=== PATIENT | female | born 1950 | race Caucasian/White ===

== ENCOUNTER 2019-04-19 12:48 | Inpatient (IN) | payer OTHER ==
[~2019-04-19] VITALS: Ht 165.1 cm; Wt 97.8 kg
[2019-04-19 12:59] VITALS: Ht 165.1 cm; Wt 97.8 kg
[2019-04-19 13:31] LABS: BASOPHIL % 0.4 % (0-2); PLATELET COUNT 211 x10^3mcL (130-400); RED CELL DISTRIBUTION WIDTH 13.7 % (11.5-14.5)
[2019-04-19 13:45] LABS: CALCIUM 8.9 mg/dL (8.5-10.1); CARBON DIOXIDE 30.9 mmol/L (21-32); CHLORIDE SERUM 103 mmol/L (98-107); CREATININE SERUM 0.9 mg/dL (0.6-1.0); GFR1 > 60 mL/min; GLUCOSE SERUM 205 mg/dL (74-106); SODIUM SERUM 138 mmol/L (136-145)
[2019-04-19 13:49] LABS: ALKALINE PHOSPHATASE 66 U/L (46-116); ALT/SGPT 36 U/L (14-59); AST/SGOT 23 U/L (15-37); BILIRUBIN TOTAL 0.4 mg/dL (0.20-1.00); TOTAL PROTEIN, SERUM 6.9 g/dL (6.4-8.2)
[2019-04-19 13:56] LABS: ALBUMIN 3.1 g/dL (3.4-5.0)
[2019-04-19] MEDS ORDERED: ZESTRIL40 MG PO (15:07)
[2019-04-19] MEDS ORDERED: ATORVASTATIN CA20 M1 PO (15:07)
[2019-04-19] MEDS ORDERED: TOPROL XL100 MG PO (15:08)
[2019-04-19] MEDS ORDERED: METFORMIN HCL500 M4 PO (15:08)
[2019-04-19 17:16] VITALS: BP 134/56
[2019-04-19] MEDS ORDERED: LIPITOR20 MG PO (20:19)
[2019-04-19 21:46] VITALS: BP 132/61
[2019-04-20 05:57] VITALS: BP 141/69
[2019-04-20 07:52] VITALS: BP 145/75
[2019-04-20] MEDS ORDERED: ECO81 PO (09:54)
[2019-04-20 12:40] VITALS: BP 144/68
[2019-04-20 12:57] VITALS: BP 144/68
[2019-04-20 16:18] VITALS: BP 147/68
== END 2019-04-20 19:43 | disposition short-term general hospital (02) | DRG 282 ==
LOC: ED 12:48 → DU 16:07
PROVIDERS: Emergency Medicine; ADMIT Hospitalist
DX: I21.4 Non-ST elevation (NSTEMI) myocardial infarction (principal); E11.9 Type 2 diabetes mellitus without complications; I10 Essential (primary) hypertension; E78.5 Hyperlipidemia, unspecified; E66.9 Obesity, unspecified; Z68.35 Body mass index [BMI] 35.0-35.9, adult; Z79.84 Long term (current) use of oral hypoglycemic drugs
CPT/HCPCS: 82962; 83880; G0378; J1644; J1650